=== PATIENT | male | born 1985 | race Caucasian/White ===

== ENCOUNTER 2016-02-18 13:22 | Emergency (ER) | payer OTHER ==
[~2016-02-18] VITALS: Ht 177.8 cm; Wt 72.6 kg
[~2016-02-18 13:22] MED LIST: BACTRIM DS 8001 TAB PO; IBUPROFEN800 MG PO; KEFLEX500 MG PO; NORCO 325 MG-51 TAB PO; PERCOCET 325 MG1 TA2 PO
[2016-02-18 13:34] VITALS: BP 136/80
[2016-02-18] MEDS ORDERED: GUAIFENESIN-COD10 ML PO (14:56)
[2016-02-18] MEDS ORDERED: ZITHROMAX250 M2 PO (14:56)
--- NOTE | 2016-02-18 14:57 | ED INFLUENZA/URI COMPLAINT ---
History of Present Illness General Chief Complaint: Upper Respiratory Sx/Fever Stated Complaint: COUGH, FEVER,WATSON X 1WK Source: patient Exam Limitations: no limitations Vital Signs & Intake/Output Vital Signs & Intake/Output Vital Signs Date Time Temp Pulse Resp B/P Pulse O2 O2 Flow FiO2 Ox Delivery Rate 02/17 1334 98.9 105 20 136/80 96 Room Air ED Intake and Output 02/18 0000 02/17 1200 Intake Total Output Total Balance Patient 160 lb Weight Allergies Coded Allergies: ampicillin (Mild, RASH 05/04/15) sulbactam (Mild, RASH 05/04/15) Reconcile Medications Azithromycin (Zithromax) 250 MG TABLET 1 DP PO AD BRONCHITIS 2 the first day followed by 1 for days 2-5 Robitussin AC (Guaifenesin-Codeine Syrup) 200 MG-20 MG/10 ML LIQUID 10 ML PO Q6HR PRN COUGH Triage Note: PT C/O COLD IN CHEST AND HEAD X 1 WEEK. STATES HE HAS TAKEN OTC MEDS BUT NOT GETTING BETTER Triage Nurses Notes Reviewed? yes Onset: Gradual Duration: week(s): (1), constant Timing: recent history Severity: mild Severity Numbers: 4 Prior Episodes/Possible Cause: occassional episodes No Modifying Factors: none Associated Symptoms: cough, CONGESTION HPI: 30-year-old male with no medical problems active smoker presents to emergency room complaining of nonproductive cough associated with congestion and generalized bodyaches for the past 1 week. He is an active smoker. He is been using [id number] medications without improvement. He states he just moved back from [place] however denies any sick contacts. He did receive a flu shot this year. There are no modifying factors no shortness of breath chest pain nausea vomiting abdominal pain diarrhea no sore throat. (KARIME LOPEZ) Past History Travel History Traveled to [place] past 21 day No Medical History Any Pertinent Medical History? none Neurological: NONE EENT: NONE Cardiovascular: NONE Respiratory: NONE Gastrointestinal: NONE Hepatic: NONE Renal: NONE Musculoskeletal: NONE Psychiatric: NONE Endocrine: NONE Blood Disorders: NONE Cancer(s): NONE INSURANCE ADVISOR/Reproductive: NONE Tetanus Vaccine: 05/04/15 Surgical History Surgical History: non-contributory Psychosocial History Who do you live with Family Services at Home None What is your primary language Macedonian Tobacco Use: Current Daily Use Daily Tobacco Use Amount/Type: => 5 Cigarettes daily ETOH Use: denies use Illicit Drug Use: denies illicit drug use Family History Hx Contributory? No (KARIME LOPEZ) Review of Systems Review of Systems Constitutional: Reports: see HPI. All Other Systems: Reviewed and Negative Comments Review of systems: See HPI, All other systems negative. Constitutional, no chills no fever, no malaise HEENT: No visual changes no sore throat congestion Cardiovascular: No chest pain , no palpitation Skin, no jaundice no rashes, no change in skin Respiratory: No dyspnea cough no sputum no hemoptysis GI: No nausea no vomiting, no diarrhea, : No dysuria Muscle skeletal: No joint pain, no back pain, no neck pain, Neurologic: No numbness no headache Psych: No stress Heme/endocrine: No bruising no bleeding Immunology: No lymphadenopathy, (KARIME LOPEZ) Physical Exam Physical Exam General Appearance: well developed/nourished, alert, awake Ears, Nose, Throat: normal ENT inspection, moist mucous membrane, hearing grossly normal, Tympanic normal, nasal congestion Comments: Well-developed well-nourished patient in no apparent distress. Head/Face: Atraumatic, no maxillary/frontal sinus tenderness, no facial swelling Eyes: PERRL, EOMI, no conjunctival injection. No nystagmus Ear:External auditory canal and Tympanic membranes clear, no erythema, no FB. Nose: atraumatic.Normal inspection Throat: Moist mucous membranes.Pharynx normal. No pharyngeal erythema/exudate seen. No stridor/drooling or assymetry. No swelling or edema. Neck: Supple, no lymphadenopathy, FROM Back: FROM, Nontender Cardiovascular: Regular rate and rhythms no murmurs rubs or gallops, Respiratory: No respiratory distress. Patient speaking in full complete sentences. Breath sounds clear to auscultation bilaterally: NO W/R/R Extremities: full range of motion Neuro: Alert and oriented x3 Skin: Warm & dry;No appreciable rash on exposed skin Psych: Mood affect normal, normal memory normal judgment. Core Measures Severe Sepsis Present: No Septic Shock Present: No (KARIME LOPEZ) Progress Differential Diagnosis: influenza, otitis, pneumonia, pharyngitis, sinusitis, BRONCHITIS Plan of Care: he is nontoxic appearing afebrile. Discussed with him need for supportive care Tylenol Motrin prescription for Z-Mahamed and Robitussin with codeine provided by I discussed with him need to abstain from from tobacco use feels comfortable with plan Initial ED EKG: none (KARIME LOPEZ) Departure Departure Time of Disposition: 1454 Disposition: HOME OR SELF CARE Condition: Stable Clinical Impression Primary Impression: Bronchitis Referrals: STORMY MORGAN DO PATIENT HAS NO PRIMARY CARE DR (PCP/Family) Additional Instructions: Robitussin with codeine for cough Z-Mahamed as directed. These prescriptions were sent to pharmacy. Stop smoking and follow-up with primary care physician Dr. morgan. return with any concerns Departure Forms: Customer Survey General Discharge Information Prescriptions: Current Visit Scripts Robitussin AC (Guaifenesin-Codeine Syrup) 10 ML PO Q6HR PRN COUGH #200 ML Azithromycin (Zithromax) 1 DP PO AD #6 TAB 2 the first day followed by 1 for days 2-5 (KARIME LOPEZ) PA/YARN DYER Co-Sign Statement Statement: ED Attending supervision documentation- [] I saw and evaluated the patient. I have also reviewed all the pertinent lab results and diagnostic results. I agree with the findings and the plan of care as documented in the PA's/YARN DYER's documentation. [X] I have reviewed the ED Record and agree with the PA's/YARN DYER's documentation. [] Additions or exceptions (if any) to the PAs/YARN DYER's note and plan are summarized below: [] (VIKA RONQUILLO,PAULA)
== END 2016-02-18 14:56 ==
LOC: ERH 13:22
DX: J40 Bronchitis, not specified as acute or chronic (principal); F17.210 Nicotine dependence, cigarettes, uncomplicated